=== PATIENT | male | born 1970 | race Two or more races ===

== ENCOUNTER 2016-09-06 20:27 | Emergency (ER) | payer SELFPAY ==
[~2016-09-06] VITALS: Ht 172.7 cm; Wt 72.6 kg
[2016-09-06 20:58] VITALS: BP 138/96
[2016-09-06] MEDS ORDERED: IBUPROFEN 600 MG TABLET PO ONE ×2 (21:30→21:36)
== END 2016-09-06 22:55 | disposition home or self-care (01) ==
LOC: ER 20:30
DX: S52.022A Displaced fracture of olecranon process without intraarticular extension of left ulna, initial encounter for closed fracture (principal); S39.012A Strain of muscle, fascia and tendon of lower back, initial encounter; M54.5 Low back pain; W01.0XXA Fall on same level from slipping, tripping and stumbling without subsequent striking against object, initial encounter; Y93.89 Activity, other specified; Y92.9 Unspecified place or not applicable; Y99.9 Unspecified external cause status
CPT/HCPCS: 72100-TC; 73080-TC; A4606; Z7610

== ENCOUNTER 2020-02-29 22:28 | Emergency (ER) | payer OTHER ==
[~2020-02-29] VITALS: Ht 172.7 cm; Wt 72.6 kg
--- NOTE | 2020-02-29 22:50 | NUR ---
PT C/O EPIGASTRIC PAIN AFTER DINNER 1 HR AGO. PT AAOX4, VSS. RR EVEN & UNALBORED. DENIES CP, SOB, DIZZINESS, N/V/D AT THIS TIME. PT SEEN & EVAL'D BY DR. JACOBS. WILL CONT TO MONITOR.
[2020-02-29] MEDS ORDERED: LIDOCAINE VISCOUS 2% UD 15 ML UDC ONE (22:53)
[2020-02-29] MEDS ORDERED: MAG HYDROX/AL HYDROX/SIMETH 30 ML UDC ONE (22:53)
[2020-02-29] MEDS ORDERED: MAG HYDROX/AL HYDROX/SIMETH 30 ML UDC PO ONE (23:00)
[2020-02-29] MEDS ORDERED: LIDOCAINE VISCOUS 2% UD 15 ML UDC MM ONE (23:00)
[2020-02-29 23:37] VITALS: BP 115/65
== END 2020-02-29 23:38 | disposition home or self-care (01) ==
LOC: ER 22:34
DX: K21.9 Gastro-esophageal reflux disease without esophagitis (principal)

== ENCOUNTER 2022-01-10 14:37 | Emergency (ER) | payer OTHER ==
[~2022-01-10] VITALS: Ht 170.2 cm; Wt 77.1 kg
[2022-01-10 15:07] VITALS: BP 100/60
--- NOTE | 2022-01-10 16:24 | NUR ---
X-RAY CD REQUESTED.
[2022-01-10] MEDS ORDERED: IBUP-1957 PO (16:48)
--- NOTE | 2022-01-10 16:52 | NUR ---
Patient discharged to home in stable condition. Written and verbal after care instructions given. Patient verbalizes understanding of instruction.
== END 2022-01-10 16:56 | disposition home or self-care (01) ==
LOC: ER 14:47
DX: S82.52XA Displaced fracture of medial malleolus of left tibia, initial encounter for closed fracture (principal); V89.2XXA Person injured in unspecified motor-vehicle accident, traffic, initial encounter; Y93.89 Activity, other specified; Y92.411 Interstate highway as the place of occurrence of the external cause; Y99.8 Other external cause status
CPT/HCPCS: 73610-TC

== ENCOUNTER 2022-01-17 19:47 | Emergency (ER) | payer OTHER ==
[~2022-01-17] VITALS: Ht 172.7 cm; Wt 77.1 kg
[~2022-01-17 19:47] MED LIST: IBUP-1957 PO
[2022-01-17 21:27] VITALS: BP 149/88
--- NOTE | 2022-01-17 21:30 | NUR ---
SEEN BY DR MCINTOSH AT BEDSIDE.
--- NOTE | 2022-01-17 21:30 | NUR ---
BIBWIFE C/O SORE THROAT, CHILLS, FEVER COUGHING X 3 DAYS. PLACED COMFORTABLY IN BED. VITALS CHECKED.
--- NOTE | 2022-01-17 21:48 | NUR ---
COVID RAPID, INFLUENZA A/B, AND COVID PCR SWABBING DONE AND SENT TO LAB
[2022-01-17] MEDS ORDERED: CODEINE/PROMETHAZINE HCL 5 ML UDC PO PRN (23:00)
--- NOTE | 2022-01-17 23:16 | NUR ---
COVID ANTIGEN POSITIVE; MD NOTIFIED. CONTACT [facility]T [facility] IN PLACE
[2022-01-17] MEDS ORDERED: PROM118S PO (23:31)
[2022-01-17] MEDS ORDERED: CODEINE/PROMETHAZINE HCL 5 ML UDC ONE ×2 (23:35→23:36)
--- NOTE | 2022-01-17 23:39 | NUR ---
Patient discharged to home in stable condition. Written and verbal after care instructions given. Patient verbalizes understanding of instruction.
== END 2022-01-17 23:40 | disposition home or self-care (01) ==
LOC: ER 19:51
DX: U07.1 COVID-19 (principal); R03.0 Elevated blood-pressure reading, without diagnosis of hypertension
CPT/HCPCS: 71045; 87426; 87804; 99284; C9803; U0003

== ENCOUNTER 2024-02-07 14:02 | Emergency (ER) | payer OTHER ==
[~2024-02-07] VITALS: Ht 172.7 cm; Wt 81.6 kg
[~2024-02-07 14:02] MED LIST changes: +PROM118S PO
[2024-02-07] MEDS ORDERED: IBUPROFEN 400 MG TABLET ONE (15:23)
[2024-02-07] MEDS: IBUPROFEN 400 MG TABLET PO ONE (15:26)
[2024-02-07] MEDS ORDERED: IBUP-1957 PO (15:56)
[2024-02-07 16:15] VITALS: BP 132/70; TEMP 98.7; O2SAT 96
== END 2024-02-07 16:16 | disposition home or self-care (01) ==
LOC: ER 14:03
DX: U07.1 COVID-19 (principal); J02.8 Acute pharyngitis due to other specified organisms
CPT/HCPCS: 86403-TC; 87070-TC